=== PATIENT | male | born 1940 | race Caucasian/White ===

== ENCOUNTER → 2016-08-15 | Outpatient (CLI) | payer OTHER, BC ==
[2016-02-13 12:41] VITALS: BP 126/78; PULSE 58
[~2016-08-15] MED LIST: AMLO5TAB2 PO; ANSHCCR PR; CALC500C70 PO; CHOL2000 PO; FINA5TAB PO; LEUP11.23 IM; LISI40TA PO; METF1TAB53 PO; PRVC10 PO; PSYL55.43 PO
[2016-08-15 12:55] VITALS: BP 109/65; PULSE 68; TEMP 36.5; O2SAT 98
--- NOTE | 2016-08-15 14:07 | Radiation Oncology Follow-Up ---
Radiation Oncology Follow-Up Date of Visit Aug 15, 2016. Reason For Visit 6 month follow-up Radiation Completion Date Hormonal therapy;Seed implant 10/13/15;Ext. Rad 01/16/16 Diagnosis (1) Prostate cancer Status: Resolved Onset Date: 02/16/2015 Location: both lobes of the prostate Histology Subtype: adenocarcinoma Stage: ll (B biopsy stage) Permanent Comment: Rising PSA with multiple prior biopsies Recheck biopsy 02/16/2015 showing adenocarcinoma the prostate Beaver 3+3 and 4+ 3 PSA 22.8 corrected on finasteride Prostate volume 47.6 Prostate density 0.478 Status post prostate seed implant as boost 10/13/2015 57 seeds were placed 8500 cGy Status post completion of external beam radiation 01/16/2016. Received 4500 cGy. Last Edited By: Poli Lemus on Feb 13, 2016 18:34 History of Present Illness Mr. Bates is a 74-year-old male who is had a long history of urinary symptoms and elevated prostate-specific antigens. The patient has been on finasteride for many years. Due to the long history of elevated prostate-specific antigens patient has had multiple biopsies. His first recorded biopsy was on 2004. A total of 12 biopsies were taken and all were negative with the left apex showing focal atypical small acinar proliferation. Specimen #[id number]. He underwent repeat biopsies on 10/10/2004. A total of 14 samples were taken. Again all 14 samples were negative. The right apex biopsy showed atypical small acinar proliferation. These areas were felt to be suspicious but not diagnostic for cancer. Specimen #[id number]. His next biopsy was on 2005. Again a total of 14 biopsies were taken. Several biopsies were positive for mild chronic active prostatitis but no evidence of malignancy. Case: [id number]. In 2007 his prostate-specific antigen was recorded at 24. A total of 14 biopsies were taken and all biopsies were negative with no malignancy and no high-grade PIN. Case: [id number]. His prostate-specific antigen in 2008 was recorded at 28 and 2009 33. In July 2010 the prostate-specific antigen was 39. In September 19, 2010 the patient underwent a transurethral resection for increasing urinary symptoms. This showed acute and chronic prostatitis but was negative for carcinoma. Case: [id number]. Patient was on finasteride and in June 2011 his prostate-specific antigen was 6. In August 2012 prostate-specific antigen was 8.81 corrected to 18 for the effects of finasteride. In September 2013 the prostate-specific antigen was 10.5 corrected to 21 due to finasteride. In December 2014 prostate-specific antigen was 11.4 corrected to 23 for the effects of finasteride. Because of the persistent prostate-specific antigen elevation over the past several years a repeat ultrasound-guided biopsy was recommended. The patient agreed and on he underwent ultrasound-guided biopsies. A total of 14 biopsies were taken. This included two each from the left and right base, left and right mid gland, left and right apex and one from the left and right anterior gland. The biopsies from the left base revealed mild chronic inflammation but no neoplasm seen. Biopsies of the right base revealed no neoplasm seen. Biopsies from the left mid gland revealed mild chronic inflammation with no neoplasm seen. Biopsies the right mid gland revealed mild chronic inflammation with no neoplasm seen. Biopsy from the left apex revealed mild chronic inflammation with no neoplasm seen. Biopsy from the right apex revealed adenocarcinoma involving one of 2 core samples with Beaver grade 3+3 involving 10% of the core tissue sample with no perineural invasion identified. The left anterior biopsy was positive for an adenocarcinoma Trudy grade 3+3 involving less than 5% with no perineural invasion seen. The biopsy from the right anterior was positive for adenocarcinoma Trudy grade 4+3 involving 40% of the core sample with no perineural invasion seen. Case: [id number]. Patient had previously undergone a CT scan of the abdomen and pelvis on 2014 due to the hematuria. This revealed a right adrenal gland with a 0.8 x 1.4 cm low-density nodule. In the pelvis there are no enlarged lymph nodes the bladder was normal as was the prostate gland. There were no bony abnormalities seen. A bone scan has been ordered but not yet performed to complete his staging workup. The patient met with Dr. Samuel Ca to discuss the findings of the biopsy and potential treatment options. We were asked to see the patient in referral to review with him the potential radiation treatment options. His final decision was to be treated with hormone suppression followed by prostate seed implant. He then will return for external beam therapy. Interim History He is doing well from urinary status. His AUA score was 4. He does continue on finasteride. He does not require any other medications to help with urination. He completed and expanded prostate cancer index composite for clinical practice and gave a score of 0 12 in urinary incontinence symptoms. He and the score of one of 12 and urinary irritation symptoms. He gave a score of 2 of 12 bowel symptoms. He gave a score of 12 of 12 in sexual symptoms. He gave a score of one of 12 and hormonal vitality symptoms. His total was 16 of 60. He has had recheck PSAs. He had a PSA 03/19/2016 that was less than 0.01. He had a PSA 07/02/2016 that was 0.01. He has noted a change in bowel habits since completion of radiation. He will have more of a formed stool first and then looser stool toward the end of his bowel movement. He underwent Hemoccult testing at Dr. Irby's office. This came back positive. He stated later this week she'll be seeing Dr. Irby discuss further testing. He does have a known history of colon polyps. He had a polyp removed approximately 3 years ago. Allergies Coded Allergies: Latex (Verified Allergy, Unknown, WATERING OF EYES, 10/13/15) NO KNOWN DRUG ALLERGIES (Verified Allergy, Unknown, NKDA, 10/13/15) Home Medications Scheduled Amlodipine Besylate (Norvasc), 5 MG PO QPM Calcium/Vitamin D (Os-Feliberto 500 Plus D), 1 TAB PO DAILY Cholecalciferol (Vitamin D3), 1 CAP PO QAM Finasteride (Proscar), 5 MG PO QAM Lisinopril (Zestril), 1 TAB PO QAM Metformin Hcl (Glucophage Ext Rel), 1,000 MG PO BID Pravastatin Sod (Pravastatin Sodium), 10 MG PO QPM Scheduled PRN Hydrocortisone (Proctosol Hc), 1 APPLN NE TID PRN for Hemorrhoids Psyllium (Metamucil Powder), 1 PACK PO DAILY PRN for Constipation Review of Systems Gastrointestinal: Symptoms: WNL GI Comments: Over last month stools start formed & end diarrhea at one sitting; Oral: Symptoms: No Problems Respiratory: Symptoms: WNL Urinary: Symptoms: Burning, Nocturia Comments: 2 voids/night; Skin: Symptoms: No Problems Physical Exam Vital Signs Date Time Temp Pulse Resp B/P Pulse Ox O2 Delivery O2 Flow Rate FiO2 08/15/16 12:55 36.5 68 20 109/65 98 Pain: Side: Bilateral Patient Pain Scale: 0 - 10 Initial Pain Intensity: 0.0 Fatigue: None General Appearance: no apparent distress Eyes: normal inspection, EOMI ENT: normal ENT inspection, hearing grossly normal Respiratory/Chest: lungs clear, no respiratory distress, no accessory muscle use Cardiovascular: regular rate, rhythm, no gallop, no murmur Abdomen: non tender, soft, no organomegaly Anal / Rectum: Rectal examination reveals mild external hemorrhoids. Examination of the rectum reveals an irregular raised lesion on the right side of the rectum. There is bleeding noted on the examination finger. The prostate is consistent with seed implant. Extremities: no pedal edema Neurologic/Psychiatric: no motor/sensory deficits, alert, normal mood/affect Skin: warm/dry Additional Studies PSA is as reviewed above. Assessment & Plan Plan: Patient will be seen his PCP later this week. He is initiating a workup for the heme positive stool. I've given the patient a note in regards to the irregular area noted on examination. I also discussed with him that patients can develop radiation proctitis which can cause some rectal bleeding. We'll continue to follow his workup through the electronic medical record. It is very likely he'll be going for a colonoscopy and probable biopsy. If he does not follow-up he will be contacted. He has a follow-up appointment with Dr. Ca in the fall. We asked him to return to our office in 1 year. Total Time In Follow-Up I spent 25 minutes speaking to the patient and performing examination. I spent 15 minutes reviewing information in completing this note. Copy To Samuel Ca MD, Urology; Stephane Irby M.D.
== END | disposition home or self-care (01) ==
LOC: C.ONC 12:35
PROVIDERS: ATTEND Physician Assistant Medical
DX: Z08 Encounter for follow-up examination after completed treatment for malignant neoplasm (principal); Z92.3 Personal history of irradiation; Z85.46 Personal history of malignant neoplasm of prostate

== ENCOUNTER → 2017-08-20 | Outpatient (CLI) | payer OTHER, BC ==
[~2017-08-20] MED LIST changes: -LEUP11.23 IM
[2017-08-20 13:07] VITALS: BP 121/71; PULSE 70; TEMP 36.7; O2SAT 98
--- NOTE | 2017-08-20 15:36 | Radiation Oncology Follow-Up ---
Radiation Oncology Follow-Up Date of Visit Aug 20, 2017. Reason For Visit annual follow up Radiation Completion Date Seed Implant - 10/13/15, External 01/15/19 Diagnosis (1) Prostate cancer Status: Resolved Onset Date: 02/16/2015 Location: both lobes of the prostate Histology Subtype: Adenocarcinoma Stage: ll (B biopsy stage) Permanent Comment: Rising PSA with multiple prior biopsies Recheck biopsy 02/16/2015 showing adenocarcinoma the prostate Orange 3+3 and 4+ 3 PSA 22.8 corrected on finasteride Prostate volume 47.6 Prostate density 0.478 Status post prostate seed implant as boost 10/13/2015 57 seeds were placed 8500 cGy Status post completion of external beam radiation 01/16/2016. Received 4500 cGy. Last Edited By: Poli Lemus on Feb 13, 2016 18:34 History of Present Illness Mr. Bates is a 74-year-old male who is had a long history of urinary symptoms and elevated prostate-specific antigens. The patient has been on finasteride for many years. Due to the long history of elevated prostate-specific antigens patient has had multiple biopsies. His first recorded biopsy was on 2004. A total of 12 biopsies were taken and all were negative with the left apex showing focal atypical small acinar proliferation. Specimen #[id number]. He underwent repeat biopsies on 10/10/2004. A total of 14 samples were taken. Again all 14 samples were negative. The right apex biopsy showed atypical small acinar proliferation. These areas were felt to be suspicious but not diagnostic for cancer. Specimen #[id number]. His next biopsy was on 2005. Again a total of 14 biopsies were taken. Several biopsies were positive for mild chronic active prostatitis but no evidence of malignancy. Case: [id number]. In 2007 his prostate-specific antigen was recorded at 24. A total of 14 biopsies were taken and all biopsies were negative with no malignancy and no high-grade PIN. Case: [id number]. His prostate-specific antigen in 2008 was recorded at 28 and 2009 33. In July 2010 the prostate-specific antigen was 39. In September 19, 2010 the patient underwent a transurethral resection for increasing urinary symptoms. This showed acute and chronic prostatitis but was negative for carcinoma. Case: [id number]. Patient was on finasteride and in June 2011 his prostate-specific antigen was 6. In August 2012 prostate-specific antigen was 8.81 corrected to 18 for the effects of finasteride. In September 2013 the prostate-specific antigen was 10.5 corrected to 21 due to finasteride. In December 2014 prostate-specific antigen was 11.4 corrected to 23 for the effects of finasteride. Because of the persistent prostate-specific antigen elevation over the past several years a repeat ultrasound-guided biopsy was recommended. The patient agreed and on he underwent ultrasound-guided biopsies. A total of 14 biopsies were taken. This included two each from the left and right base, left and right mid gland, left and right apex and one from the left and right anterior gland. The biopsies from the left base revealed mild chronic inflammation but no neoplasm seen. Biopsies of the right base revealed no neoplasm seen. Biopsies from the left mid gland revealed mild chronic inflammation with no neoplasm seen. Biopsies the right mid gland revealed mild chronic inflammation with no neoplasm seen. Biopsy from the left apex revealed mild chronic inflammation with no neoplasm seen. Biopsy from the right apex revealed adenocarcinoma involving one of 2 core samples with Trudy grade 3+3 involving 10% of the core tissue sample with no perineural invasion identified. The left anterior biopsy was positive for an adenocarcinoma Orange grade 3+3 involving less than 5% with no perineural invasion seen. The biopsy from the right anterior was positive for adenocarcinoma Trudy grade 4+3 involving 40% of the core sample with no perineural invasion seen. Case: [id number]. Patient had previously undergone a CT scan of the abdomen and pelvis on 2014 due to the hematuria. This revealed a right adrenal gland with a 0.8 x 1.4 cm low-density nodule. In the pelvis there are no enlarged lymph nodes the bladder was normal as was the prostate gland. There were no bony abnormalities seen. A bone scan has been ordered but not yet performed to complete his staging workup. The patient met with Dr. Samuel Ca to discuss the findings of the biopsy and potential treatment options. We were asked to see the patient in referral to review with him the potential radiation treatment options. His final decision was to be treated with hormone suppression followed by prostate seed implant. He then will return for external beam therapy. He had a prostate seed implant October 13, 2015. 57 seeds were placed. He received 8500 cGy. He then returned and underwent external beam therapy. This was completed January 16, 2016. He received 4500 cGy. Interim History He has been doing well over this past year. He gave an AUA score of 3. He does not require any medication to help with urination. Following his examination last year he did undergo a colonoscopy. He has been having rectal bleeding. He did have a palpable abnormality on the rectal examination. The colonoscopy was performed. He did have mild radiation proctitis. There was a hypertrophied anal papilla. He did have also a small polyp. The polyp was removed and was benign. He has not had any issues with bleeding of late. He was having problems with loose frequent bowel movements. His metformin dose was decreased and that greatly improved the issues with diarrhea. He completed and expanded prostate cancer index composite for clinical practice and gave a score of 0 of 12 and urinary incontinence symptoms. He gave a score 1 of 12 and urinary irritation symptoms. He gave a score of 1 of 12 and bowel symptoms. He gave a score of 12 of 12 in sexual symptoms. He gives score of 1 of 12 and hormonal vitality symptoms. His total was 15 of 60. He had a PSA at [facility] January 01, 2017. That was less than 0.010. He had a PSA August 07, 2017 and that was 0.02. Allergies Coded Allergies: Latex (Verified Allergy, Unknown, WATERING OF EYES, 10/13/15) NO KNOWN DRUG ALLERGIES (Verified Allergy, Unknown, NKDA, 10/13/15) Home Medications Scheduled Amlodipine Besylate (Norvasc), 5 MG PO QPM Calcium/Vitamin D (Os-Feliberto 500 Plus D), 1 TAB PO DAILY Cholecalciferol (Vitamin D3), 1 CAP PO BID Lisinopril (Zestril), 1 TAB PO QAM Metformin Hcl (Glucophage Ext Rel), 1,000 MG PO BID Pravastatin Sod (Pravastatin Sodium), 10 MG PO QPM Scheduled PRN Hydrocortisone (Proctosol Hc), 1 APPLN [place] TID PRN for Hemorrhoids Psyllium (Metamucil Powder), 1 PACK PO DAILY PRN for Constipation Review of Systems Gastrointestinal: Symptoms: WNL Oral: Symptoms: No Problems Respiratory: Symptoms: WNL Urinary: Symptoms: WNL, Nocturia Comments: Nocturia x 1, See AUA & EPIC Skin: Symptoms: No Problems Physical Exam Vital Signs Date Time Temp Pulse Resp B/P (MAP) Pulse Ox O2 Delivery O2 Flow Rate FiO2 08/20/17 13:07 36.7 70 16 121/71 98 Fatigue: None General Appearance: no apparent distress Eyes: normal inspection, PERRL ENT: normal ENT inspection, hearing grossly normal Respiratory/Chest: lungs clear, no respiratory distress, no accessory muscle use Cardiovascular: regular rate, rhythm, no gallop, no murmur Abdomen: non tender, soft, no organomegaly Anal / Rectum: Rectal examination reveals external and internal hemorrhoids. The hypertrophied anal papilla is noted. Prostate is consistent with a seed implant. No rectal masses no rectal bleeding. Normal sphincter tone. Extremities: no pedal edema Neurologic/Psychiatric: no motor/sensory deficits, alert, normal mood/affect Skin: warm/dry Pain Management Patient Reports Pain: No Pain Management Plan He denies pain therefore requires no pain management. Laboratory Laboratory Results: were reviewed Laboratory Comments: Reviewed in the interim history. Pathology Pathology Results: were reviewed, and pertinent findings noted in HPI Imaging Imaging Studies: were reviewed Imaging Comments Images taken at the time of the colonoscopy were reviewed. Assessment & Plan Plan: Continue recheck PSAs every 6 months. He will be seeing Dr. Ca and having a recheck PSA in December. We asked him to return to our office in 1 year. An order was given to get a PSA prior to that visit. He may call our office if he has any questions or concerns in the interim. Total Time In Follow-Up I spent 20 minutes speaking to the patient in performing examination. I spent 15 minutes reviewing information and completing this note. Copy To Samuel Ca MD, Urology; Stephane Irby M.D.
== END | disposition home or self-care (01) ==
LOC: C.ONC 12:51
PROVIDERS: ATTEND Physician Assistant Medical
DX: Z08 Encounter for follow-up examination after completed treatment for malignant neoplasm (principal); Z92.3 Personal history of irradiation; Z85.46 Personal history of malignant neoplasm of prostate